=== PATIENT | male | born 1965 | race Caucasian/White ===

== ENCOUNTER 2024-08-13 18:26 | Emergency (ER) | payer BC, SELFPAY ==
[2024-08-13 18:29] VITALS: BP 132/90
[2024-08-13 19:15] VITALS: BMI 31.9
--- NOTE | 2024-08-13 20:21 | ED.GENMED ---
History of Present Illness
General
Chief Complaint: Back Pain
Source: patient and spouse (Spouse states that he could barely walk due to pain)
Time Seen by Provider: 08/13/24 19:48
History of Present Illness
History of Present Illness:
59-year-old male who states he was transferring liquid from 1 container to another when he went to stand up he sort of locked up and had pain in the right low back. He denies any radiation of the pain. The pain is clearly worse in certain
positions. Denies bladder or bowel dysfunction. He denies motor weakness. Denies any radiation to the legs. No sensory changes. The pain is located in the right low back. States it feels like a spasm
Past History
Past History
ED Past Medical History: HTN and Hypercholesterolemia
Phy Exam
Physical Exam
Physical Exam:
CONSTITUTIONAL Patient alert and oriented to person, place and time. Well-appearing. Vital signs reviewed.
HEAD atraumatic, normocephalic.
EYES eyelids normal to inspection, Extraocular muscles intact, Conjunctiva normal, Sclera normal.
NECK normal range of motion, Trachea midline, no jugular venous distention.
RESPIRATORY CHEST No respiratory distress noted, Chest expansion equal
BACK normal inspection, no obvious deformities. Moderate tenderness noted to the right paraspinal lumbar region just above the iliac crest on the right. Negative straight leg raise
UPPER EXTREMITY range of motion normal, Motor strength normal, no cyanosis, no edema.
LOWER EXTREMITY range of motion normal, Motor strength normal, no cyanosis, no edema.
NEURO Speech normal, No focal motor deficits, Laisha coma scale 15, Memory normal, Cranial Nerves intact to screening exam.
SKIN skin warm, dry, and normal in color.
Course
Orders/Labs/Results
Orders:
Orders
08/13/24 20:03
Ketorolac [Toradol] 30 mg IV NOW STA
diazePAM [Valium Injection] 5 mg IV NOW STA
Vital Signs
Initial and Last Documented VS:
Initial Vital Signs
Temp Pulse Resp BP Pulse Ox
97.8 F 79 20 132/90 98
08/13/24 18:29 08/13/24 18:29 08/13/24 18:29 08/13/24 18:29 08/13/24 18:29
Last Documented Vital Signs
Temp Pulse Resp BP Pulse Ox
97.8 F 71 20 118/66 98
08/13/24 18:29 08/13/24 20:38 08/13/24 20:38 08/13/24 20:38 08/13/24 20:38
MDM/Problems Addressed
Differential Diagnosis Includes:
Herniated nucleus pulposus, lumbar spasm, lumbar fracture
MDM/Problems Addressed:
Low back pain
*Pulse Oximetry
Patient hypoxic: no
*Critical Care Note
Total Time (30-74mins, 75-104mins- exclusive of procedures): Not Applicable
Data Reviewed
Source: patient and spouse
Further Testing Considered But Not Given:
Considered imaging but patient denies fall. No bony tenderness
Patient Management
Escalation/DeEscalation of care consider admission/obs:
Mild improvement. No neurosymptoms. Treat with steroids, muscle laxation and NSAIDs
ED Attending Note
-
Portions of this chart may have been created with voice recognition software.� Occasional wrong word or��sound alike� substitutions may have occurred due to the inherent limitations of voice recognition software.
Discharge Plan
Departure
Patient Disposition: Home (Routine Discharge)
Date of Disposition: 08/13/24
Time of Disposition: 21:15
Patient with high blood pressure during this ER visit?: No
Discharge Problem:
Low back pain
Instructions: Low Back Pain (DC)
Prescriptions:
New
prednisone 10 mg Tablet
See Rx Instructions .ROUTE .COMPLEX Qty: 30 0RF
Rx Instructions:
Take By Mouth:
40 mg daily x3 days, 30 mg daily x3 days,
20 mg daily x3 days, 10 mg daily x3 days.
diazepam 5 mg tablet
5 mg PO TID PRN (Reason: muscle spasm) Qty: 14 0RF
No Action
amlodipine
5 mg PO DAILY
Referrals:
Yordan Rodriguez DO [Family Provider] -
Activity Restrictions/Additional Instructions:
Please rest. Please see your doctor in the next 1 week for follow-up and reevaluation. If symptoms persist, an outpatient MRI may be necessary. Return immediately for fevers, leg weakness, bladder or bowel incontinence, worsening pain or any
other concerns. Please use ibuprofen every 6 hours [id number] for the next 3 days.
Interventions
Interventions:
*Risk Screen - Suicide Last Done: 08/13/24 18:34
*General Assessment Last Done: 08/13/24 18:29
*Neglect/Abuse Screening Last Done: 08/13/24 19:15
*ED- Fall Risk Assessment Last Done: 08/13/24 19:15
*ED COVID-19 Vaccine History Last Done: 08/13/24 19:15
ED-Musculoskeletal Assessment Last Done: 08/13/24 19:15
Discharge Date and Time
Print Language: MONTSERRATIAN
[2024-08-13] MEDS: TORADOL 30 MG IV (20:34)
[2024-08-13] MEDS: VALIUM INJECTION 5 MG IV (20:34)
[2024-08-13 20:38] VITALS: BP 118/66
[2024-08-13] MEDS: VALIUM 5 MG PO ×2 (21:20→21:28)
[2024-08-13 21:45] VITALS: BP 100/54
== END 2024-08-13 21:45 | disposition home or self-care (01) ==
LOC: EMR 18:26
PROVIDERS: EMERGENCY PHYSICIAN Emergency Medicine; FAMILY PHYSICIAN Family Medicine Adult Medicine
DX: M54.50 Low back pain, unspecified (principal); I10 Essential (primary) hypertension; E78.00 Pure hypercholesterolemia, unspecified
CPT/HCPCS: 96374; 96375; 99284